=== PATIENT | female | born 1945 | race Caucasian/White ===

== ENCOUNTER 2024-03-08 10:29 | Inpatient (IN) | payer OTHER ==
[~2024-03-08] VITALS: Ht 157.5 cm; Wt 66.2 kg
[2024-03-08] MEDS ORDERED: NS 1,000 ML IV SCH ×4 (10:45→16:00)
[2024-03-08 11:00] LABS: Source, Urine Straight Cath
[2024-03-08 11:02] LABS: BASOPHILS ABSOLUTE AUTO 0.01 K/mm3 (0.00-0.23); BASOPHILS PERCENT AUTO 0 % (0-2); EOSINOPHILS ABSOLUTE AUTO 0.01 K/mm3 (0.00-0.68); EOSINOPHILS PERCENT AUTO 0 % (0-6); Hematocrit 42.3 % (33.0-51.0); Hemoglobin 14.6 g/dL (11.5-16.0); IMMATURE GRAN ABSOLUTE AUTO 0.02 K/mm3 (0.00-0.10); IMMATURE GRAN PERCENT AUTO 0 % (0-1); LYMPHOCYTES ABSOLUTE AUTO 0.33 K/mm3 (0.84-5.20); LYMPHOCYTES PERCENT AUTO 5 % (21-46); MONOCYTES ABSOLUTE AUTO 0.05 K/mm3 (0.16-1.47); MONOCYTES PERCENT AUTO 1 % (4-13); Mean Corpuscular HGB 30.5 pg (26.0-34.0); Mean Corpuscular HGB Conc 34.5 g/dL (31.5-36.5); Mean Corpuscular Volume 88 fL (80-100); Mean Platelet Volume 9.9 fL (9.1-12.4); NEUTROPHILS ABSOLUTE AUTO 6.75 K/mm3 (1.96-9.15); NEUTROPHILS PERCENT AUTO 94 % (41-73); Platelet Count 207 K/mm3 (150-400); RDW Coefficient Variation 13.2 % (11.7-14.2); RDW Standard Deviation 42.9 fL (35.1-46.3); Red Blood Cell Count 4.79 M/mm3 (3.80-5.20); White Blood Cell Count 7.17 K/mm3 (4.00-11.30)
[2024-03-08] MEDS ORDERED: LEVSOD75 PO (11:14)
[2024-03-08] MEDS ORDERED: CITALOPRAM HBR10 MG PO (11:14)
[2024-03-08] MEDS ORDERED: EZALLOR SPRINKL20 MG PO (11:15)
[2024-03-08] MEDS ORDERED: DONEPEZIL HCL10 MG PO (11:16)
[2024-03-08] MEDS ORDERED: QUET25 PO (11:16)
[2024-03-08] MEDS ORDERED: Prinivil10 MG PO (11:16)
[2024-03-08] MEDS ORDERED: QUET100 PO (11:17)
[2024-03-08] MEDS ORDERED: OMEP20ER PO (11:17)
[2024-03-08] MEDS ORDERED: MIRT15 PO (11:17)
[2024-03-08] MEDS ORDERED: IBANDRONATE SO150 MG PO (11:17)
[2024-03-08 11:29] LABS: Albumin, Blood 2.7 g/dL (3.4-5.0); Albumin/Globulin Ratio 0.8 (0.8-1.8); Bilirubin, Total 2.4 mg/dL (0.1-1.0); Bun/Creatinine Ratio 12.5 (12.0-20.0); Calcium, Blood 9.8 mg/dL (8.5-10.1); Creatinine, Blood 0.88 mg/dL (0.40-1.00); Globulin, Blood 3.6 g/dL (2.2-4.0); Potassium, Blood 2.8 mmol/L (3.5-5.5); Total Protein, Blood 6.3 g/dL (6.4-8.2)
[2024-03-08] MEDS ORDERED: CefTRIAXone Sodium 1,000 MG in NS 50 ML IV ONE (11:50)
[2024-03-08] MEDS ORDERED: FentaNYL Citrate 50 MCG/ML 2 ML Injection IV ONE (12:10)
[2024-03-08 12:23] LABS: CORONAVIRUS COVID-19 AG Negative (NEGATIVE); INFLUENZA A AG Positive (NEGATIVE); INFLUENZA B AG Negative (NEGATIVE)
[2024-03-08 12:30] LABS: Appearance, Urine Hazy (Clear); Blood, Urine 2+ (Neg); Color, Urine Amber (P-Yellow); Glucose Qualitative, Urine Neg (Neg); Ketones, Urine Neg (Neg); Leukocyte Esterase, Urine 3+ (Neg); Nitrite, Urine Neg (Neg); Protein, Urine 2+ (Neg); Specific Gravity, Urine 1.025 (1.003-1.022); Urobilinogen, Urine 3+ (Normal)
[2024-03-08 13:40] LABS: Bacteria Many /hpf; Bilirubin, Urine 1+ (Neg); White Blood Cells, Urine 25-50 /hpf (0-5)
[2024-03-08 13:41] LABS: Red Blood Cells, Urine 0-2 /hpf (0-2)
[2024-03-08 13:42] LABS: Granular Casts 0-2 /lpf (0); Squamous Epithelial Cells Rare /hpf (Few)
[2024-03-08] MEDS ORDERED: Acetaminophen 325 MG TABLET PO ONE (13:45)
[2024-03-08] MEDS ORDERED: Magnesium Hydroxide Conc 10 ML UDC PO PRN (15:15)
[2024-03-08] MEDS ORDERED: FLU VACC TS2024-25(6MOS UP)/PF 45 MCG/0.5 ML SYRINGE IM SCH (15:15)
[2024-03-08] MEDS ORDERED: Ondansetron HCl 2 MG / ML 2ML Vial IV PRN (15:15)
[2024-03-08] MEDS ORDERED: Potassium Chloride 40 MEQ in NS 250 ML IV STA (15:17)
[2024-03-08] MEDS ORDERED: Misc. Tablet PO SCH (15:35)
[2024-03-08] MEDS ORDERED: Oseltamivir Phosphate 75 MG Cap PO ONE (16:00)
[2024-03-08] MEDS ORDERED: Acetaminophen 325 MG TABLET PO PRN (16:20)
[2024-03-08] MEDS ORDERED: Mirtazapine 15 MG Tab PO SCH (17:00)
[2024-03-08] MEDS ORDERED: QUEtiapine Fumarate 100 MG Tab PO SCH (17:00)
[2024-03-08] MEDS ORDERED: Donepezil HCl 5 MG Tab PO SCH (17:00)
[2024-03-08 18:09] VITALS: BP 115/59
--- NOTE | 2024-03-08 19:15 | NUR ---
TRANSFER TO PCU PT ARRIVED TO PCU AT APPROXIMATELY 1800. PT TRANSFERRED TO PCU VIA ER GURINDRA, TRANSFERED TO PCU BED VIA SLIDER SHEET. PT ALERT ORIENTED TO SELF AND FAMILY. PT YELLS OUT WITH CARE. MOVES EXTREMITIES EQUALLY BILATERALLY. HR 80'S SINUS, MAP >65. PT ON 4LPM VIA NC, OXYGEN SATURATION >92%. PIV IN PLACE TO RAC AND LFA. BED IN LOWEST POSITION, CALL LIGHT WITHIN REACH. PT FAMILY AT THE BEDSIDE. CARE CONTINUES.
[2024-03-08 19:44] VITALS: BP 95/49
[2024-03-08 19:51] VITALS: BP 86/46
[2024-03-08 19:53] VITALS: BP 95/68
[2024-03-08] MEDS ORDERED: Potassium Chl 20MEQ/Water100ML 100 ML IV ONE (20:00)
[2024-03-08] MEDS ORDERED: Potassium Chloride 20 MEQ in NS 90 ML IV ONE (20:00)
[2024-03-08] MEDS ORDERED: Oseltamvir Phosphate 30 MG Cap PO SCH (21:00)
--- NOTE | 2024-03-08 21:30 | NUR ---
ASSUMPTION OF CARE ASSUMED CARE OF PT AT 1900,BEDSIDE REPORT COMPLETED WITH DAYSNHFT NURSE.PT SLEEPING,REPONDS TO VOICE.PT'S FAMILY AT BEDSIDE.POTASSIUM REPLACEMENT INFUSING,NS INFUSING AT 125ML/HR.NO S/S OF PAIN/DISCOMFORT NOTED.FAMILY REPORTS THAT PT CAN BE AGGRESSIVE AND COMBATIVE SECONDARY TO DEMENTIA.BED ALARM ACTIVATED FOR PT'S SAFETY.PLAN OF CARE REVIEWED WITH FAMILY.WILL CONTINUE TO MONITOR.
[2024-03-09 00:07] VITALS: BP 92/64
[2024-03-09 04:04] VITALS: BP 111/62
[2024-03-09] MEDS ORDERED: Omeprazole 20 MG CapCR PO SCH (06:00)
--- NOTE | 2024-03-09 06:24 | NUR ---
SHIFT SUMMARY PT HAS BEEN SLEEPING MOST OF THE NIGHT,RESISTANT TO CARE.BLADDER SCANNED DUE TO NO URINE OUTPUT FOR >6 HOURS,288ML IN BLADDER.PT URINATED THIS MORNING 150ML OF BROWN COLORED URINE.PT EASILY AROUSABLE THIS MORNING AND COOPERATIVE WITH CARE BUT REFUSED BLOOD DRAW.REMAINS CONFUSED BUT ABLE TO CONVERSE APPROPRIATELY THIS MORNING.CALL LIGHT AND PT'S ITEMS WITHIN REACH.PT DENIES PAIN,DENIES NEEDS.WILL REPORT TO DAYSHIFT NURSE.
[2024-03-09 08:20] VITALS: BP 135/70
[2024-03-09] MEDS ORDERED: Enoxaparin 40 MG/0.4 ML SYR SC SCH (09:00)
[2024-03-09] MEDS ORDERED: QUEtiapine Fumarate 25 MG Tab PO SCH (09:00)
[2024-03-09] MEDS ORDERED: Citalopram Hydrobromide 10 MG TAB PO SCH (09:00)
[2024-03-09] MEDS ORDERED: Rosuvastatin Calcium 10 MG Tab PO SCH (09:00)
[2024-03-09] MEDS ORDERED: CefTRIAXone Sodium 1,000 MG in NS 100 ML IV SCH ×2 (09:00→12:00)
[2024-03-09] MEDS ORDERED: Lisinopril 10 MG Tab PO SCH (09:00)
[2024-03-09 11:13] VITALS: BP 131/61
[2024-03-09 12:53] LABS: Albumin, Blood 2.4 g/dL (3.4-5.0); Albumin/Globulin Ratio 0.7 (0.8-1.8); Bilirubin, Total 0.9 mg/dL (0.1-1.0); Calcium, Blood 8.8 mg/dL (8.5-10.1); Creatinine, Blood 0.71 mg/dL (0.40-1.00); Globulin, Blood 3.3 g/dL (2.2-4.0); Magnesium, Blood 1.7 mg/dL (1.6-2.4); Potassium, Blood 3.6 mmol/L (3.5-5.5); Thyroid Stimulating Hormone 3.49 uIU/mL (0.360-4.800); Total Protein, Blood 5.7 g/dL (6.4-8.2)
[2024-03-09] MEDS ORDERED: Dextrose 5% 1,000 ML IV SCH (15:25)
[2024-03-09 16:09] VITALS: BP 134/67
--- NOTE | 2024-03-09 17:44 | NUR ---
SHIFT SUMMARY PT ALERT AND ORIENTED TO SELF AND FAMILY, PT ASKING MULTIPLE TIMES WHERE SHE IS/STATING SHE DOES NOT KNOW WHERE SHE IS, PT REORIENTED BY MEDICAL STAFF AND FAMILY, PT MOVING ALL EXTREMITIES EQUALLY, PT OBEYING COMMANDS, BEING COMPLIANT WITH CARE, BED ALARM IN PLACE. CONTINUOUS TELE MONITORING, SINUS RYHTM 60 S, BP STABLE WITH MAP GREATER THAN 65, STRONG PULSES PRESENT T/O, CAP REFILL LESS THAN 3S, PT DENIES CHEST P/P. CONTINUOUS SPO2, PT TITRATED FROM 2L O2 VIA NC TO RA THIS AM, SPO2 GREATER THAN 90%, PT HAVING OCCASIONAL NONPRODUCTIVE COUGH. PT REFUSING MEALS, FAMILY BROUGHT IN SOME YOGURT DRINKS THAT PT TOLERATED WELL, BOWEL TONES PRESENT IN ALL 4Q, PT HAD FIRM BM THIS SHIFT. FEMALE PUREWICK CHANGED THIS AM, PUREWICK CONNECTED TO LOW CONTINUOUS SUCTION, URINE TEA IN COLOR.
--- NOTE | 2024-03-09 19:27 | NUR ---
ASSUMPTION OF CARE ASSUMED CARE OF PT AT 1900,BEDSIDE REPORT COMPLETED WITH PREVIOUS NURSE.PT AWAKE AND ALERT,CONVERSING APPROPRIATELY.PT DENIES PAIN,DENIES NEEDS.PLAN OF CARE REVIEWED WITH PT.CALL LIGHT AND PT'S ITEMS WITHIN REACH,BED ALARM ON FOR PT'S SAFETY.WILL CONTINUE TO MONITOR.
[2024-03-09 19:45] VITALS: BP 145/78
[2024-03-10] VITALS (7 sets, daily range): BP systolic 125–154; BP diastolic 61–101
[2024-03-10 05:08] LABS: Albumin, Blood 2.2 g/dL (3.4-5.0); Albumin/Globulin Ratio 0.7 (0.8-1.8); Bilirubin, Total 0.6 mg/dL (0.1-1.0); Bun/Creatinine Ratio 10.7 (12.0-20.0); Creatinine, Blood 0.75 mg/dL (0.40-1.00); Globulin, Blood 3.2 g/dL (2.2-4.0); Potassium, Blood 3.1 mmol/L (3.5-5.5); Total Protein, Blood 5.4 g/dL (6.4-8.2)
--- NOTE | 2024-03-10 06:31 | NUR ---
SHIFT SUMMARY PT HAS BEEN SLEEPING ON/OFF THROUGHOUT THE NIGHT.PT MORE ALERT THAN THE PREVIOUS NIGHT.PLEASANTLY CONFUSED,EASILY REDIRECTABLE.PULLED TWO IVS,STATES THAT THE IVS WERE ON HER WAY.NEW PIVS REPLACED WITHOUT DIFFICULTY.PT TOOK MEDICATION WHOLE WITH WATER WITHOUT DIFFICULTY.PT VERBALY AND PHYSICALLY AGGRESSIVE WITH CARE.PRN TYLENOL 650MG PO GIVEN PER PT'S REQUEST FOR A HEADACHE.PT AWAKE AT THIS TIME.DENIES PAIN,DENIES NEEDS.BED IN THE LOWEST POSITION,CALL LIGHT AND PT'S ITEMS WITHIN REACH,BED ALARM ON.WILL PASS REPORT TO DAYSHIFT NURSE.
[2024-03-10] MEDS ORDERED: Potassium Chloride 20 MEQ/15 ML UDC PO SCH (10:00)
--- NOTE | 2024-03-10 17:57 | NUR ---
TRANSFER OF CARE NOTE REPORT GIVEN TO TRISTA Omer, MEDICAL FLOOR RN PT TRANSFERRED BY BED TO ROOM 348 BY MEDICAL STAFF @ APPROX 1750. FAMILY AT BEDSIDE DURING TRANSFER. PT ALERT AND ORIENTED TO SELF AND FAMILY, PT STATING SHE IS IN [place]/ PT REPORTINED TO BEING IN [facility], PT AWARE THAT SHE IS IN THE HOSPITAL BUT DOES NOT KNOW WHY, PT MOVING ALL EXTREMITIES EQUALLY, PT OBEYING COMMANDS, BEING COMPLIANT WITH CARE, BED ALARM IN PLACE, PT WORKED WITH PT/OT ABLE TO GET UP INTO CHAIR 1 PERSON ASSIST WITH FWW. CONTINUOUS TELE MONITORING, SINUS RYHTM 60 S, BP STABLE WITH MAP GREATER THAN 65/ PT CALLS OUT DURING BP, STRONG PULSES PRESENT T/O, CAP REFILL LESS THAN 3S, PT DENIES CHEST P/P. SPO2 GREATER THAN 90% ON RA, PT HAVING OCCASIONAL NONPRODUCTIVE COUGH. BOWEL TONES PRESENT IN ALL 4Q. PUREWICK CONNECTED TO LOW CONTINUOUS SUCTION, URINE YELLOW IN COLOR.
[2024-03-11 04:23] VITALS: BP 149/81
--- NOTE | 2024-03-11 05:09 | NUR ---
DIFFICULT TO ASSESS PT D/T FATIGUE AND ORIENTATION. SLEPT THROUGHOUT NIGHT, EASILY AWAKENED FOR CARES. NO ACUTE NEEDS OVERNIGHT, SHE IS COOPERATIVE AND PLESANT.
[2024-03-11 07:33] VITALS: BP 141/71
[2024-03-11] MEDS ORDERED: NS 250 ML IV PRN (08:50)
[2024-03-11 10:24] LABS: Albumin, Blood 2.3 g/dL (3.4-5.0); Albumin/Globulin Ratio 0.7 (0.8-1.8); Bilirubin, Total 0.6 mg/dL (0.1-1.0); Bun/Creatinine Ratio 8.3 (12.0-20.0); Calcium, Blood 9.4 mg/dL (8.5-10.1); Creatinine, Blood 0.72 mg/dL (0.40-1.00); Globulin, Blood 3.5 g/dL (2.2-4.0); Potassium, Blood 3.7 mmol/L (3.5-5.5); Total Protein, Blood 5.8 g/dL (6.4-8.2)
[2024-03-11] MEDS ORDERED: Tamiflu30 MG PO (13:24)
[2024-03-11] MEDS ORDERED: AMOCLA875 PO (13:27)
[2024-03-11] MEDS ORDERED: VISBIOME 112.51 EACH PO (13:27)
--- NOTE | 2024-03-11 14:17 | NUR ---
DISCHARGE NOTE PT A&O TO SELF AND FAMILY. PT HAS HX OF DEMENTIA. TRANSPORT CAME AT 1404. PT ADMITTED DUE TO SEVERE SEPSIS. PT WAS DISCHARGED WITH HOME HEALTH. PT WAS TRANSPORTED BY GURNEY. GAVE TRANSPORT FAX SHEET AND BLUE SHEET. PT HAD IV ANTIBIOTICS THIS AM. DAUGHTER WAS AT BEDSIDE DURING SHIFT. DAUGHTER REPORTED NOT FEELING CAPABLE OF GETTING PT IN AND OUT OF VEHICLE, GURNEY WAS REQUESTED. IV D/C. TELE D/C. EDUCATED DAUGHTER AND PT ON DISCHARGE INSTRUCTIONS AND MEDS. MEDS FAXED TO PHARMACY. DAUGHTER STATED PT HAS APPT WITH PCP. DR. CODY D/C POTASSIUM DOSE THIS AM.
[2024-03-11] MEDS ORDERED: Oseltamvir Phosphate 6 MG/ML 1MLORALSYR PO SCH (21:00)
== END 2024-03-11 14:13 | disposition home health service (06) | DRG 871 ==
LOC: ER 10:29 → PCU 10:30 → MEDS 03-10 17:40 → ENPENDDIS 03-11 12:17 → MEDS 03-11 14:13
PROVIDERS: Emergency Medicine; Internal Medicine; ADMIT Internal Medicine
DX: A41.59 Other Gram-negative sepsis (principal); J96.01 Acute respiratory failure with hypoxia; N39.0 Urinary tract infection, site not specified; E87.0 Hyperosmolality and hypernatremia; A41.89 Other specified sepsis; Z66 Do not resuscitate; R65.20 Severe sepsis without septic shock; J11.1 Influenza due to unidentified influenza virus with other respiratory manifestations; E87.6 Hypokalemia; A08.4 Viral intestinal infection, unspecified; F03.90 Unspecified dementia, unspecified severity, without behavioral disturbance, psychotic disturbance, mood disturbance, and anxiety; I10 Essential (primary) hypertension; E03.9 Hypothyroidism, unspecified; K21.9 Gastro-esophageal reflux disease without esophagitis; F32.A Depression, unspecified; Z79.890 Hormone replacement therapy; Z79.899 Other long term (current) drug therapy
CPT/HCPCS: 36415; 71045; 74177; 80053; 81001; 82947; 83605; 83735; 83880; 84443; 84484; 85025; 87040; 87077; 87086; 87186; 87428-QW; 93005; 93010; 96361; 96365-59; 97110; 97161; 97165; 97530; 99285-25; A9270; J0696; J1650; J3010; J3480; J7030; J7050; J7070; Q9967